=== PATIENT | male | born 2000 | race Two or more races ===

== ENCOUNTER 2024-10-04 15:29 | Emergency (ER) | payer OTHER ==
[~2024-10-04] VITALS: Ht 172.7 cm; Wt 68.0 kg
[2024-10-04] MEDS ORDERED: CEFTRIAXONE SODIUM 1,000 MG VIAL IM ONE (17:30)
[2024-10-04] MEDS ORDERED: KETOROLAC TROMETHAMINE 60 MG VIAL IM ONE ×2 (17:30→17:38)
[2024-10-04] MEDS ORDERED: TETANUS & DIPHTHERIA TOX,ADULT 0.5 ML VIAL IM ONE (17:30)
[2024-10-04] MEDS ORDERED: LIDOCAINE HCL 1% 10ML VIAL PERCUT ONE (17:30)
[2024-10-04] MEDS ORDERED: LIDOCAINE HCL 1% 10ML VIAL ONE (17:39)
[2024-10-04] MEDS ORDERED: CEFTRIAXONE SODIUM 1,000 MG VIAL ONE (17:39)
[2024-10-04] MEDS ORDERED: PEPCID AC20 MG PO (20:50)
[2024-10-04] MEDS ORDERED: CEFUROXIME500 MG PO (20:50)
[2024-10-04 20:52] VITALS: BP 100/60; O2SAT 100
== END 2024-10-04 20:53 | disposition home or self-care (01) ==
LOC: ER 15:30
DX: S01.81XA Laceration without foreign body of other part of head, initial encounter (principal); W45.8XXA Other foreign body or object entering through skin, initial encounter; Y93.59 Activity, other involving other sports and athletics played individually; Y92.218 Other school as the place of occurrence of the external cause; Y99.9 Unspecified external cause status

== ENCOUNTER → 2024-10-20 | Emergency (ER) | payer OTHER ==
[~2024-10-20] VITALS: Ht 172.7 cm; Wt 68.0 kg
[~2024-10-20] MED LIST: CEFUROXIME500 MG PO; PEPCID AC20 MG PO
== END | disposition left against medical advice (07) ==
LOC: ER 11:00
DX: Z53.21 Procedure and treatment not carried out due to patient leaving prior to being seen by health care provider (principal)